=== PATIENT | male | born 1945 | race Caucasian/White ===

== ENCOUNTER 2018-01-31 06:30 | Day surgery (SDC) | payer MEDICARE, BC, OTHER ==
[~2018-01-31] VITALS: Ht 172.7 cm; Wt 81.5 kg
[2018-01-31] MEDS ORDERED: SODIUM CHLORIDE 0.9% 1,000 ML IV SCH (07:17)
[2018-01-31 07:18] VITALS: BP 113/69
[2018-01-31] MEDS ORDERED: PLEASE ENTER HEIGHT AND WEIGHT MC SCH (07:30)
[2018-01-31] MEDS ORDERED: MIDAZOLAM 1 MG/ML, 5ML ONE (07:54)
[2018-01-31] MEDS ORDERED: FENTANYL PF 100 MCG/2ML ONE ×2 (07:54)
[2018-01-31] MEDS ORDERED: NALOXONE 1 MG/ML, 2ML ONE (07:55)
[2018-01-31] MEDS ORDERED: FLUMAZENIL 0.1 MG/1 ML, 5ML ONE (07:55)
[2018-01-31] MEDS ORDERED: LIDOCAINE 2%, 10ML ONE (07:58)
[2018-01-31] MEDS ORDERED: VISIPAQUE 270 MG/ML, 50ML BOTTLE ONE (09:03)
== END 2018-01-31 10:30 ==
LOC: OUT 06:30
PROVIDERS: ATTEND Surgery
DX: Z45.2 Encounter for adjustment and management of vascular access device (principal); I26.99 Other pulmonary embolism without acute cor pulmonale
CPT/HCPCS: 37191; 76937; 82962; 99156; 99157; C1769; C1880; C1894; J2250; J3010; J3490; J7030; Q9966; J2310

== ENCOUNTER → 2018-02-11 | Outpatient (CLI) | payer MEDICARE, BC, OTHER ==
[~2018-02-11] MED LIST: AMOX-291 PO; ATOR20TA9 PO; BISO1TAB10 PO; CALC-534 PO; CHOL200024 PO; CYAN100072 PO; LACT1CAP37 PO; LISI5TAB7 PO; MELA3TAB2 PO; MINO100C PO; MULT-658 PO; SITA100T PO; VITA1TAB19 PO
[2018-02-11 10:01] LABS: ALBUMIN 3.7 g/dL (3.4-5.0); ANION GAP 8 mmol/L (5-15); CHLORIDE 103 mmol/L (98-107)
[2018-02-11 10:04] LABS: ALANINE AMINOTRANSFERASE 31 U/L (12-78); ALKALINE PHOSPHATASE 76 U/L (45-117); BILIRUBIN,TOTAL 0.8 mg/dL (0.2-1.0); CREATININE 1.08 mg/dL (0.7-1.3); TOTAL PROTEIN 7.2 g/dL (6.4-8.2)
[2018-02-11 10:13] LABS: BASOPHILS # (AUTO) 0.04 x10^3/uL (0-0.1); BASOPHILS % (AUTO) 1 % (0-1); EOSINOPHILS # (AUTO) 0.16 x10^3/uL (0-0.4); EOSINOPHILS % (AUTO) 2 % (1-7); LYMPHOCYTES # (AUTO) 1.18 x10^3/uL (1-3.4); LYMPHOCYTES % (AUTO) 16 % (22-44); MD NO; MEAN CORPUSCULAR HEMOGLOBIN 32.2 pg (27.5-34.5); MEAN CORPUSCULAR HGB CONC 33.2 g/dL (33.2-36.2); MEAN CORPUSCULAR VOLUME 96.9 fL (81-97); MEAN PLATELET VOLUME 8.9 fL (7.4-10.4); MONOCYTES # (AUTO) 0.62 x10^3/uL (0.2-0.8); MONOCYTES % (AUTO) 9 % (2-9); NEUTROPHILS # (AUTO) 5.33 x10^3/uL (1.8-6.8); NEUTROPHILS % (AUTO) 73 % (42-75); PLATELET COUNT 149 x10^3/uL (130-400); RED BLOOD COUNT 4.78 x10^6/uL (4.38-5.82); RED CELL DISTRIBUTION WIDTH 13.9 % (9.4-14.8)
== END | disposition home or self-care (01) ==
LOC: STAR 08:28
PROVIDERS: ATTEND Surgery
DX: Z01.818 Encounter for other preprocedural examination (principal)
CPT/HCPCS: 36415; 80053; 85025; 93005

== ENCOUNTER → 2018-02-15 | Outpatient (CLI) | payer MEDICARE, BC, OTHER | END | disposition home or self-care (01) | LOC: WOUND 08:15 | PROVIDERS: ATTEND Nurse Practitioner Family | DX: K57.92 Diverticulitis of intestine, part unspecified, without perforation or abscess without bleeding (principal); E11.9 Type 2 diabetes mellitus without complications; E78.00 Pure hypercholesterolemia, unspecified; I10 Essential (primary) hypertension; Z86.711 Personal history of pulmonary embolism; Z86.718 Personal history of other venous thrombosis and embolism; Z85.828 Personal history of other malignant neoplasm of skin | CPT/HCPCS: G0463; WOU0463 ==

== ENCOUNTER 2018-11-16 07:17 | Day surgery (SDC) | payer MEDICARE, BC, OTHER ==
[~2018-11-16] VITALS: Ht 172.7 cm; Wt 83.4 kg
[~2018-11-16 07:17] MED LIST changes: +ATOR20TA37 PO; -ATOR20TA9 PO; +OXYC-302 PO
[2018-11-16] MEDS ORDERED: SODIUM CHLORIDE 0.9% 1,000 ML IV SCH (08:07)
[2018-11-16] MEDS ORDERED: FLUO40CR9 TP (08:13)
[2018-11-16] MEDS ORDERED: SITA100T PO (08:13)
[2018-11-16] MEDS ORDERED: ASPI-496 PO (08:13)
[2018-11-16] MEDS ORDERED: IBUP-1223 PO (08:13)
[2018-11-16 08:16] VITALS: BP 124/78
[2018-11-16] MEDS ORDERED: MIDAZOLAM 1 MG/ML, 5ML ONE ×2 (09:07→09:08)
[2018-11-16] MEDS ORDERED: FENTANYL PF 100 MCG/2ML ONE (09:07)
[2018-11-16] MEDS ORDERED: FLUMAZENIL 0.1 MG/1 ML, 5ML ONE (09:08)
[2018-11-16] MEDS ORDERED: NALOXONE 1 MG/ML, 2ML ONE (09:08)
[2018-11-16] MEDS ORDERED: LIDOCAINE-MPF 1%, 5ML ONE ×2 (09:09)
== END 2018-11-16 11:45 | disposition home or self-care (01) ==
LOC: OUT 07:17
PROVIDERS: ATTEND Internal Medicine Hematology & Oncology
DX: T82.818A Embolism due to vascular prosthetic devices, implants and grafts, initial encounter (principal); E11.9 Type 2 diabetes mellitus without complications; I10 Essential (primary) hypertension; Z79.84 Long term (current) use of oral hypoglycemic drugs; Z87.891 Personal history of nicotine dependence; Y83.8 Other surgical procedures as the cause of abnormal reaction of the patient, or of later complication, without mention of misadventure at the time of the procedure; Y92.89 Other specified places as the place of occurrence of the external cause
CPT/HCPCS: 37193; 76942; 99156; 99157; J2250; J3010; J7030; J2310